=== PATIENT | male | born 1935 | race Caucasian/White ===

== ENCOUNTER → 2020-04-27 | Outpatient (CLI) | payer OTHER ==
[~2020-04-27] MED LIST: ALTACE10 MG PO; CARVEDILOL25 MG PO; DURLAZA162.5 MG PO; FISH OIL 1,001000 M3 PO; GREEN TEA250 MG PO; LIPITOR80 MG PO; VITAMIN D325 MC5 PO
== END ==
LOC: LAB 09:48
PROVIDERS: ATTEND Otolaryngology
DX: Z01.812 Encounter for preprocedural laboratory examination (principal); Z20.828 Contact with and (suspected) exposure to other viral communicable diseases

== ENCOUNTER 2020-05-01 07:51 | Day surgery (SDC) | payer OTHER ==
[2020-04-27 08:57] LABS: HEMATOCRIT 46.6 % (42.0-52.0); HEMOGLOBIN 15.7 gm/dL (14.0-18.0); MCH 35.7 pg (26.0-34.0); MCHC 33.7 g/dL (28.0-37.0); MCV 105.9 fL (80.0-100.0); RBC 4.4 mil/uL (4.50-6.00); RDW 13.8 % (10.5-14.5); WBC 8.2 thou/uL (4.0-11.0)
[2020-04-27 09:10] LABS: ALBUMIN 3.8 g/dL (3.4-5.0); CALCIUM 8.8 mg/dL (8.5-10.1); POTASSIUM 4.9 mmol/L (3.5-5.1); TOTAL BILIRUBIN 2.3 mg/dL (0.2-1.0); TOTAL PROTEIN 7.4 g/dL (6.4-8.2)
--- NOTE | 2020-04-27 13:39 | EKG ---
[facility] [place] [address] ELECTROCARDIOGRAM REPORT Name: VLAD DOZIERHALEIGH Room #: PRE [facility] M.R.#: [id number] Admission: Attend Phys: Curt Sharp MD Discharge: Date of : 35 Report #: [id number] THIS REPORT FOR: cc: Hima Rao MD, Kenneth MD Santiago, Patrick MD [facility] ~ THIS REPORT FOR: //name// [facility] Test Date: 2020-04-27 Test Time: 08:58:04 Pat Name: HALEIGH GAN Department: Room: Gender: Hand Nailer: [facility] : 1935 Requested By: Curt Sharp Order Number: [id number] : Thierry Kohli Measurements Intervals [place] Rate: 69 P: 57 AL: 168 QRS: 13 QRSD: 81 T: 47 QT: 391 QTc: 419 Interpretive Statements Sinus rhythm No previous ECG available for comparison Electronically Signed On 04-27-2020 13:39:28 CDT by Thierry Kohli [email or web address] <ELECTRONICALLY SIGNED> By: Thierry Kohli MD, FAC 04/27/20 1339 0858 7 Thierry Kohli MD, FACC /EPI
[~2020-05-01] VITALS: Ht 175.3 cm; Wt 74.8 kg
--- NOTE | ~2020-05-01 | O ---
[facility] [place] [address] OPERATIVE REPORT Name: HALEIGH GAN Room #: DEP [facility] M.R.#: [id number] Admission: 05/01/20 Attend Phys: Curt Sharp MD Discharge: 05/01/20 Date of : 35 Report #: [id number] THIS REPORT FOR: cc: Hima Rao MD,Hima Sharp,Curt VANG ~ CC: Curt Avila DATE OF SERVICE: 05/01/2020 PRIMARY SURGEON: Curt Sharp MD PREOPERATIVE DIAGNOSES: 1. Malignant melanoma, left cheek. 2. Malignant melanoma, left nasal sidewall. 3. Complex Mohs defect, left cheek. 4. Mohs defect, left nasal sidewall. PROCEDURES PERFORMED: 1. Adjacent tissue transfer of the face more than 30 square cm with 22 modifier 50% harder than expected. 2. Walker lymph node biopsy, left cervical lymph nodes. 3. Paramedian forehead flap to nose. 4. Intermediate wound closures. ANESTHESIA: General with endotracheal tube. COMPLICATIONS: None. ESTIMATED BLOOD LOSS: Approximately 100 mL. SPECIMENS: Left cervical sentinel lymph node packet. ASSISTANTS: None. INDICATIONS FOR THE PROCEDURE: The patient is an 85-year-old gentleman with a recent history of malignant melanoma noted on biopsy of the left cheek. He was referred for Mohs micrographic excision with Dr. Abisai Avila and underwent this sometime last week. He presented to me post-excision for repair of the complex defect and for sentinel lymph node biopsy. He was counseled in the office and signed consent for the above named procedures. DESCRIPTION OF PROCEDURE: The patient was identified in the preoperative area [address] [address] OPERATIVE REPORT Name: HALEIGH GAN Room #: DEP [facility] M.R.#: [id number] Admission: 05/01/20 Attend Phys: Curt Sharp MD Discharge: 05/01/20 Date of : 35 Report #: [id number] before being transported to the operating room and placed supine on the operating table. At this point, general endotracheal anesthesia was induced and a timeout was called to ensure the patient identity and procedure to be performed. First, the entire wound was debrided and injected locally with 1% lidocaine 1:100,000 epinephrine solution. A left-sided cervicofacial advancement and rotation flap was planned that proceeded along the lateral aspect of the wound on the lower eyelid along the left zygomatic arch in front of the pinna around the earlobe and then down onto the neck in an arcing fashion back toward the midline at approximately the middle portion of his neck and a natural skin crease. This overlied the area in which the gamma probe was used to identify the likely location of the sentinel lymph node in left level 2. The entire incisions were injected with 1% lidocaine 1:100,000 epinephrine solution along with the bilateral supratrochlear neurovascular bundle areas starting first by incising the cervical portion of the incision, a #15 blade was used to incise down into the subcutaneous layer. I found the platysma and divided it sharply and followed this superiorly until the platysmal fibers ended and I was overlying the sternocleidomastoid. At this point, I identified the great auricular nerve and preserved this and raised a subcutaneous flap superficial to this up to and over the angle of the mandible staying in the superficial subcutaneous fat plane just deep to the hair follicles. Once this was retracted, the gamma probe was again used to identify the likely area in left level 2 where the sentinel node was found. Dissection along the anterior aspect of the sternocleidomastoid was performed. The posterior belly of digastric was identified and the spinal accessory nerve was also identified. The likely node was found to be in left level 2B therefore, I removed the entirety of left level 2B and passed it off as a lymph node packet for my permanent specimen. This area, achieved hemostasis with bipolar and monopolar cautery and attention was turned back to forming the very large left facial and cervical skin flap. I released the remainder of the incisions in front of the ear and along the zygomatic arch with a #15 blade and advanced the skin flap in a subcutaneous plane all the way out to the nasolabial fold and the melolabial crease. Once this was done, a significant amount of hemostasis had to be achieved using bipolar cautery. Next, a 15-Maltese GHULAM drain was inserted in the left postauricular area and draped in the entire wound bed. First, affixing the newly formed flap into the medial canthal area, this was pinned down to the periosteum of the medial canthus with a 3-0 Vicryl stitch. The inferior aspect of the defect was closed with the flap and again fixed the periosteum and approximately the alar facial groove. This created a fairly large standing cutaneous deformity, which was excised sharply using a #15 blade along the patient's natural nasolabial fold. Additional deep sutures were placed with 3-0 Vicryl along the entire length of the newly formed flap. This got into good position with excellent closure of the facial and cervical portions of the newly created flap in its incision. After this was performed, the neck was closed with skin luises along with the facial portions being closed with 5-0 fast absorbing gut. At this point, this was all closed and the drain was put to suction for the remainder of the case. Attention was then turned to the [facility] [address] [place] [address] OPERATIVE REPORT Name: VLAD GUNNNAHEEDHALEIGH Room #: DEP [facility]..#: [id number] Admission: 05/01/20 Attend Phys: Curt Sharp MD Discharge: 05/01/20 Date of : 35 Report #: [id number] patient's nose. Several releasing incisions were made from the medial canthus up into the glabellar area and along the nasal dorsum and tip subunit border to advance the tissue laterally. This did not achieve the entirety of closure; therefore, I elected to perform a left sided paramedian forehead flap. A template was formed of the defect and transposed onto the superior aspect of the left forehead. This was injected locally with 1% lidocaine 1:100,000 epinephrine solution and then sharply incised with a #15 blade down to the supraperiosteal plane. This was advanced inferiorly down toward the supraorbital rim where an area approximately 1.5-2.2 cm superior to the rim, a sharp periosteal incision was made with a #15 blade and elevated for the remainder in the subperiosteal plane using a [place] elevator and then being released with a #15 blade. Once sufficient length had been achieved, the forehead flap was rotated and inset into the defect and sutured around its periphery using 5-0 fast absorbing gut. Once this was completed, attention was turned back to the patient's forehead where 2-0 Vicryls were placed in the deep layer to approximate the skin edges followed by the skin being closed linearly with a running locking 4-0 nylon suture. At this point, a final check for hemostasis was performed and I was pleased with the outcome. The skin pedicle for the paramedian forehead flap was wrapped with Xeroform dressing and all incisions were liberally applied with triple antibiotic ointment. The drain was switched over to self-suction bulb and the patient was returned to anesthesia where he was successfully reversed and transported to the PACU in stable condition. DISPOSITION: The patient may be discharged after meeting general discharge criteria. He should engage in drain care and wound care as instructed. He will present back to my office in approximately 48 hours' time for drain removal and a wound check, followed by a 1-week wound check. He has been given prescriptions for pain medication and prophylactic antibiotics. He should not engage in any strenuous activity or heavy lifting. They may call our office with any concerns. Please note that all instrument, sponge and needle counts were correct x 2. By: 17 16 Curt Sharp MD /magdy
[2020-05-01 09:36] VITALS: BP 135/67
[2020-05-01 16:26] VITALS: BP 135/67
[2020-05-01 16:27] VITALS: BP 135/67
--- NOTE | 2020-05-05 11:07 | PATH ---
[facility] [address] [place] [address] PATHOLOGY RPT PROCEDURE Name: HALEIGH GAN Room #: DEP [facility] M.R.#: [id number] Admission: 05/01/20 Date of : 35 Discharge: 05/01/20 Report #: [id number] Path Case #: [id number] [facility] Accession Number: [id number] . 01 Material submitted: . lymph node - LEFT CERVICAL SENTINEL NODE PACKET. Modifiers: left . 01 Clinical history: . MELANOMA, MALIGNANT LEFT NASAL MOHS DEFECT, LEFT CHEEK MOHS DEFECT . 02 Diagnosis: Lymph nodes "left cervical sentinel node packet" (3), excision: - Negative for metastatic neoplasm. - Please see comment. (LAURA:kenyetta; 05/03/2020) MBR 05/04/2020 1206 Local . 02 Comment: Three small (less than 0.5 cm) lymph nodes are identified. Metastatic neoplasm is not identified in any of the tissue sections evaluated. (MLK:home health assistant; 05/03/2020) . 02 Electronically signed: . Jazmine Hyman MD, Pathologist NPI- [id number] . 01 Gross description: . The specimen is received in formalin, labeled "Haleigh Gan, left cervical sentinel node packet" and consists of a segment of yellow-brown tissue measuring 3.8 x 2.3 x 0.9 cm. Present within are 2 lymph node candidates. The specimen is entirely submitted as follows: . A1: 1 trisected lymph node candidate A2: One bisected lymph node candidate A3-A5: Remainder of specimen (SDY; 05/02/2020) SYU/SYU 05/03/2020 1723 Local . 02 Pathologist provided ICD-10: C43.31 . 02 CPT . 518870 Specimen Comment: A courtesy copy of this report has been sent to [phone], [phone] Specimen Comment: [phone] Specimen Comment: Report sent to / [place] [address] PATHOLOGY RPT PROCEDURE Name: HALEIGH GAN Room #: DEP [facility] M.R.#: [id number] Admission: 05/01/20 Date of : 35 Discharge: 05/01/20 Report #: [id number] Path Case #: [id number] Performed at: [address], [place], [place] [id number] MD Danny Houser MD Phone: [phone] Performed at: [address] [id number] MD Ludy Baron MD Phone: [phone]
== END 2020-05-01 17:24 | disposition home or self-care (01) ==
LOC: OR 07:51 → TBA 07:57 → OR 08:25
PROVIDERS: ATTEND Otolaryngology
DX: M95.0 Acquired deformity of nose (principal); M95.2 Other acquired deformity of head; C43.39 Malignant melanoma of other parts of face; C43.31 Malignant melanoma of nose; I10 Essential (primary) hypertension; E78.5 Hyperlipidemia, unspecified; F03.90 Unspecified dementia, unspecified severity, without behavioral disturbance, psychotic disturbance, mood disturbance, and anxiety; Z87.891 Personal history of nicotine dependence; Z98.890 Other specified postprocedural states; Z79.899 Other long term (current) drug therapy; Z85.820 Personal history of malignant melanoma of skin
CPT/HCPCS: 50010; 50101; 50386; 50403; 51412; 56524; 56526; 56528; 57006; 62110; 62900; 70005

== ENCOUNTER → 2020-10-12 | Outpatient (CLI) | payer OTHER ==
[~2020-10-12] MED LIST changes: +ADULT ASPIRIN R81 MG PO; +CARBIDOPA-LEVO1 EAC1 PO; +CARBIDOPA-LEVO1 EAC7 PO
== END ==
LOC: LAB 08:46
PROVIDERS: ATTEND Otolaryngology
DX: Z01.812 Encounter for preprocedural laboratory examination (principal); Z20.822 Contact with and (suspected) exposure to COVID-19

== ENCOUNTER 2020-10-17 11:11 | Day surgery (SDC) | payer OTHER ==
[~2020-10-17] VITALS: Ht 175.3 cm; Wt 72.6 kg
[2020-10-17 12:15] VITALS: BP 141/82
[2020-10-17 14:22] VITALS: BP 141/82
--- NOTE | 2020-10-20 11:55 | O ---
[facility] [address] [facility] [place] [address] OPERATIVE REPORT Name: HALEIGH GAN Room #: DEP [facility].#: [id number] Admission: 10/17/20 Attend Phys: Curt Sharp MD Discharge: 10/17/20 Date of : 35 Report #: [id number] THIS REPORT FOR: cc: Eileen Dodge MD, Stany A. MD Williams, Carson MD ~ DATE OF SERVICE: 10/17/2020 PREOPERATIVE DIAGNOSES: 1. Left lower eyelid ectropion. 2. Left nasal flap deformity. 3. Previous facial melanoma, status post Mohs excision and reconstruction. POSTOPERATIVE DIAGNOSES: 1. Left lower eyelid ectropion. 2. Left nasal flap deformity. 3. Previous facial melanoma, status post Mohs excision and reconstruction. PROCEDURE PERFORMED: 1. Left lateral canthoplasty with lateral tarsal strip. 2. Left nasal flap thinning and revision. PRIMARY SURGEON: Curt Sharp MD LIBRARY CIRCULATION TECHNICIAN: None. ANESTHESIA: General. COMPLICATIONS: None. ESTIMATED BLOOD LOSS: Approximately 2 mL. SPECIMENS: None. INDICATIONS FOR THE PROCEDURE: The patient is an 85-year-old gentleman who underwent left facial and nasal melanoma excision last year and subsequently underwent sentinel lymph node biopsy and local reconstruction by myself. However, postoperatively, he continued to have persistent swelling of the left paramedian forehead flap to the nose and his left lower eyelid remained significantly edematous and began to develop ectropion therefore this was managed for many months to see if it would resolve on its own; however, it did not and we elected to move forward with a revision of the left nasal flap and a left lateral canthoplasty and revision of the left lower eyelid. He consented in the office. [address] [address] OPERATIVE REPORT Name: HALEIGH GAN [id number] Admission: 10/17/20 Attend Phys: Curt Sharp MD Discharge: 10/17/20 Date of : 35 Report #: [id number] DESCRIPTION OF PROCEDURE: The patient was identified in the preoperative area before being transported to the operating room and placed supine on the operating table. At this point, general endotracheal anesthesia was induced and a timeout was called to ensure patient identity and procedure to be performed. Next, the table was rotated 90 degrees. The patient was prepped and draped in the normal fashion. The left lateral canthus was marked and local anesthetic, totaling 4 mL were injected into the left lateral lower and upper eyelids and into the left nasal flap. Next, a stab incision was made over the left lateral canthus skin down onto the bony orbital rim and a lateral canthotomy was performed using Adam scissors. Identification of the orbital rim was performed with bimanual palpation with Q-tips and stretching of the periosteum until it was in clear view. Next, grasping the lateral aspect of the tarsus, it was dissected free of the conjunctiva, which was then removed with Adam scissors and the anterior skin off of the tarsus. The Meibomian glands were cleared of their secretions using bipolar cautery and the most lateral aspect of the lateral tarsal plate was trimmed approximately 2-3 mm. Next, using a double armed 5-0 Prolene suture, this was placed through the upper and lower aspects of the lateral tarsal strip and then reinserted into a better location anchoring this to the periosteum of the lateral orbital rim. This was then tied into position. The knot buried. Next, the orbicularis oculi was reapproximated using 5-0 Vicryl suture in a deep interrupted fashion followed by a lateral commissuroplasty stitch using again 5-0 Vicryl suture through the upper and lower apple lines to reestablish the lateral canthal angle. Next, the skin was closed in interrupted fashion using 6-0 fast absorbing gut suture. This completed the lateral canthoplasty portion of the procedure, the lower eyelid was in much better apposition to the globe of the eye and there was a significant decrease in the edema of the left lower lid. Next, attention was turned to the left nasal flap, an arcing incision was made medially from approximately 6 o'clock to 12 o'clock and this was raised in the subcutaneous plane. A layer of fatty tissue was debulked from the undersurface of the flap and hemostasis was achieved using bipolar cautery. Approximately the medial two-thirds of the flap was able to be raised and thinned, however, the lateral one-third had to be left in situ in order to not devascularize the flap. This may need further revision in the future. At this point, the nasal flap was closed in layers using 5-0 Vicryl followed by a running stitch of 6-0 fast absorbing gut suture on the skin. The patient was cleaned and ointment applied to the nasal flap. He was reversed from anesthesia and transported to the PACU in stable condition. Please note that all instrument, sponge and needle counts were correct x2. DISPOSITION: The patient may be discharged from the hospital after meeting general discharge criteria. He is to not engage in any strenuous activity. He [facility] [address] [place] [address] OPERATIVE REPORT Name: HALEIGH GAN Room #: DEP [facility]#: [id number] Admission: 10/17/20 Attend Phys: Curt Sharp MD Discharge: 10/17/20 Date of : 35 Report #: [id number] should use his medications as prescribed. I will see him in 1 week's time for a postoperative visit. <ELECTRONICALLY SIGNED> By: Curt Sharp MD 10/20/20 1155 1415 1441 Curt Sharp MD /nt
== END 2020-10-17 15:11 | disposition home or self-care (01) ==
LOC: TBA 11:11 → OR 11:11
PROVIDERS: ATTEND Otolaryngology
DX: H02.105 Unspecified ectropion of left lower eyelid (principal); M95.0 Acquired deformity of nose; I10 Essential (primary) hypertension; E78.5 Hyperlipidemia, unspecified; I25.2 Old myocardial infarction; F03.90 Unspecified dementia, unspecified severity, without behavioral disturbance, psychotic disturbance, mood disturbance, and anxiety; G20 Parkinson's disease; Z98.890 Other specified postprocedural states; Z79.899 Other long term (current) drug therapy; Z85.828 Personal history of other malignant neoplasm of skin; Z87.891 Personal history of nicotine dependence; Z90.49 Acquired absence of other specified parts of digestive tract
CPT/HCPCS: 50010; 50101; 50386; 50417; 51412; 56528; 56531; 57006; 62110; 62900; 70005